=== PATIENT | male | born 1970 | race Caucasian/White ===

== ENCOUNTER → 2017-03-20 08:10 | Emergency (ER) | payer BC ==
[~2017-03-20 08:10] MED LIST: Ciproflox/Dexameth OTIC.SUSP* 7.5 ML BTL RIGHT EAR ONE; Ketorolac INJ* 60 MG/2 ML VIAL IM ONE
--- NOTE | 2017-03-20 10:05 | RAD ---
HISTORY: Right jaw pain COMPARISONS: None VIEWS: 4, frontal, axial, and bilateral oblique views of the mandible with the jaw closed FINDINGS: BONE DENSITY: Normal. BONES: There is no displaced fracture. JOINTS: There is no arthropathy. ALIGNMENT: There is no dislocation. There is no appreciable malocclusion SOFT TISSUES: Unremarkable. OTHER FINDINGS: None. IMPRESSION: UNREMARKABLE PLAIN FILMS OF THE MANDIBLE. IF THERE IS CLINICAL CONCERN FOR INTERNAL DERANGEMENT, MRI OF THE TEMPOROMANDIBULAR JOINTS MAY BE MORE SENSITIVE
[2017-03-20 10:51] VITALS: BP 142/91
--- NOTE | 2017-03-21 10:23 | ED ---
jasmyn Hernandez Timothy, scribed for Vimal Constantino MD on 03/20/17 at 0832 . Throat Pain/Nasal Congestion - HPI Summary HPI Summary: Juve Maier is a 47 yo male presenting to [facility] with 6/10 right sided jaw pain since 2100 03/19/17. He states his jaw is "out of place". He noticed some ear pain originally, but realized that the jaw was the true source of his pain. He states that he can feel his jaw bone pressing up on the inside of his ear, and that he used a Qtip try and push the jaw bone down from inside his ear. He states it feels like the right side of his jaw is pushed out of place. He states that when he had his tonsillectomy, his doctor had to dislocate his jaw. He has self-medicated with ibuprofen and mucinex with no relief. His MHx includes HTN, tobacco use, and tonsillectomy. - History of Current Complaint Time Seen by Provider: 03/20/17 09:11 Hx Obtained From: Patient Onset/Duration: Sudden Onset, Lasting Hours, Still Present Severity: Moderate - Allergies/Home Medications Allergies/Adverse Reactions: Allergies Allergy/AdvReac Type Severity Reaction Status Date / Time No Known Allergies Allergy Verified 09/05/14 10:10 PMH/Surg Hx/FS Hx/Imm Hx Cardiovascular History: Reports: Hx Hypertension - Surgical History Surgery Procedure, Year, and Place: tonsillectomy Infectious Disease History: Denies: Traveled Outside the [place] in Last 30 Days - Family History Known Family History: Positive: Cardiac Disease, Hypertension, Diabetes - Social History Alcohol Use: None Substance Use Type: Reports: None Hx Tobacco Use: Yes Smoking Status (MU): Former Smoker Review of Systems Constitutional: Negative Negative: Fever, Chills Eyes: Negative Negative: Erythema Positive: Other - jaw pain. Negative: Sore Throat Cardiovascular: Negative Negative: Chest Pain Respiratory: Negative Negative: Shortness Of Breath, Cough Gastrointestinal: Negative Negative: Abdominal Pain, Vomiting, Nausea Genitourinary: Negative Negative: dysuria, hematuria Musculoskeletal: Negative Negative: Myalgia, Edema - legs Skin: Negative Negative: Rash Neurological: Negative, Other - no dizziness Psychological: Normal All Other Systems Reviewed And Are Negative: Yes Physical Exam - Summary Physical Exam Summary: Constitutional: Well-developed, Well-nourished, Alert. (-) Distressed Skin: Warm, Dry HENT: Normocephalic; Atraumatic. Significant edema of the right external auditory canal with clear drainage. Pre-auricular tenderness with very mild trismus. Eyes: Conjunctiva normal Neck: Musculoskeletal ROM normal neck. (-) JVD, (-) Stridor, (-) Tracheal deviation Cardio: Rhythm regular, rate normal, Heart sounds normal; Intact distal pulses; The pedal pulses are 2+ and symmetric. Radial pulses are 2+ and symmetric. (-) Murmur Pulmonary/Chest wall: Effort normal. (-) Respiratory distress, (-) Wheezes, (-) Rales Abd: Soft, (-) Tenderness, (-) Distension, (-) Guarding, (-) Rebound Musculoskeletal: (-) Edema Lymph: (-) Cervical adenopathy Neuro: Alert, Oriented x3 Psych: Mood and affect Normal Triage Information Reviewed: Yes Vital Signs On Initial Exam: Initial Vitals Temp Pulse Resp BP Pulse Ox 97.2 F 78 18 159/96 99 03/20/17 08:19 03/20/17 08:19 03/20/17 08:19 03/20/17 08:19 03/20/17 08:19 Vital Signs Reviewed: Yes Diagnostics - Vital Signs Vital Signs Temp Pulse Resp BP Pulse Ox 03/20/17 08:19 97.2 F 78 18 159/96 99 - Laboratory Lab Statement: Any lab studies that have been ordered have been reviewed, and results considered in the medical decision making process. - Radiology Mandible XR Xray Interpretation: No Acute Changes - IMPRESSION: UNREMARKABLE PLAIN FILMS OF THE MANDIBLE. IF THERE IS CLINICAL CONCERN FOR INTERNAL DERANGEMENT, MRI OF THE TEMPOROMANDIBULAR JOINTS MAY BE MORE SENSITIVE Radiology Interpretation Completed By: Radiologist Re-Evaluation - Re-Evaluation First Eval Re-Evaluation Time: 10:27 Change: Unchanged Comment: Reviewed imaging studies with Pt, he is agreeable to be discharged. He was advised to switch from ibuprofen to the prescribed naproxen. EENT Course/Dx - Course Assessment/Plan: Juve Maier is a 47 yo male presenting to [facility] with 6/ 10 jaw pain since 2100 last night, claiming it is out of place. His medication list has been reviewed this visit. In the ED course he received toradol for pain management and ciprofloxacin/dexamethasone. His mandibular XR suggests unremarkable exam. Pt declined stronger pain medications than toradol. After clinical examination and review of his imaging study, he will be discharged home with right otitis externa with appropriate instructions. Pt understand that if he develops fever or worsening trismus he should return to [facility], and that he should switch from ibuprofen to the prescribed naproxen. - Differential Diagnoses Differential Diagnoses: Otitis Externa - Diagnoses Provider Diagnoses: Right otitis media Discharge - Discharge Plan Condition: Stable Disposition: HOME Patient Education Materials: Otitis Externa (ED), Ciprofloxacin/Dexamethasone ( Into the ear) Referrals: Neal Bone MD [Medical Doctor] - 2 Days Raleigh Briceno MD [Primary Care Provider] - 2 Days Additional Instructions: Please follow up with your primary care physician and the provided specialist regarding your visit to the emergency department today. Be sure to use 4 drops of the prescribed Cipro/Dex twice a day for 7 days. Return to the emergency department with any new or recurring symptoms, most importantly worsening trismus or fever. The documentation as recorded by the jasmyn lopez Timothy accurately reflects the service I personally performed and the decisions made by me, Vimal Constantino MD.
== END | disposition home or self-care (01) ==
LOC: ED 08:10
DX: H66.91 Otitis media, unspecified, right ear (principal); R68.84 Jaw pain; Z87.891 Personal history of nicotine dependence
CPT/HCPCS: 70110; 96372; 99281; A9270-GY; J1885

== ENCOUNTER 2021-10-15 21:10 | Inpatient (IN) ==
[2021-10-15 23:35] LABS: ABS Basophils 0.1 10^3/ul (0-0.2); ABS Eosinophils 0.8 10^3/ul (0-0.6); ABS Lymphocytes 1.7 10^3/ul (1.0-4.8); ABS Monocytes 0.9 10^3/ul (0-0.8); ABS Neutrophils 4.8 10^3/ul (1.5-7.7); Eosinophil % 9.7 %; Hematocrit 41 % (42-52); Hemoglobin 13.8 g/dL (14.0-18.0); Lymphocyte % 20.1 %; Mean Corpuscular HGB Conc 33 g/dL (31-36); Mean Corpuscular Hemoglobin 30 pg (27-31); Mean Corpuscular Volume 89 fL (80-94); Mean Platelet Volume 9.6 fL (7.4-10.4); Platelet Count 157 10^3/uL (150-450); Red Blood Count 4.63 10^6 /uL (4.18-5.48); Red Cell Distribution Width 15 % (10-15); White Blood Count 8.3 10^3/uL (3.5-10.8)
[2021-10-15 23:44] LABS: Activated Partial Thrombo Time 27.9 seconds (26.0-38.0)
[2021-10-15 23:56] LABS: Albumin 3.7 g/dL (3.2-5.2); Calcium 8.9 mg/dL (8.6-10.3); Globulin 3.2 g/dL (2-4); Potassium 3.8 mmol/L (3.5-5.0); Total Protein 6.9 g/dL (6.4-8.9); eGFR CKD-EPI 108.1 (>60)
[2021-10-15 23:57] LABS: Albumin/Globulin Ratio 1.2 (1-3); C Reactive Protein 30.58 mg/L (<8.01); Total Bilirubin 0.8 mg/dL (0.2-1.0)
[2021-10-16] MEDS ORDERED: Iohexol 350 (CONTRAST) 500 ML MDV IV ONE (00:51)
[2021-10-16] MEDS ORDERED: Enoxaparin 100 MG/ML SYR SUBCUT ONE (01:37)
[2021-10-17 05:55] LABS: ABS Basophils 0.1 10^3/ul (0-0.2); ABS Eosinophils 0.9 10^3/ul (0-0.6); ABS Lymphocytes 1.7 10^3/ul (1.0-4.8); ABS Monocytes 0.9 10^3/ul (0-0.8); ABS Neutrophils 4.3 10^3/ul (1.5-7.7); Eosinophil % 10.9 %; Hematocrit 40 % (42-52); Hemoglobin 13.4 g/dL (14.0-18.0); Lymphocyte % 21.2 %; Mean Corpuscular HGB Conc 34 g/dL (31-36); Mean Corpuscular Hemoglobin 30 pg (27-31); Mean Corpuscular Volume 89 fL (80-94); Mean Platelet Volume 9.5 fL (7.4-10.4); Platelet Count 164 10^3/uL (150-450); Red Blood Count 4.48 10^6 /uL (4.18-5.48); Red Cell Distribution Width 15 % (10-15); White Blood Count 7.9 10^3/uL (3.5-10.8)
[2021-10-18 11:55] VITALS: BP 120/82
[2021-10-18] MEDS ORDERED: COVID-19 VACCINE, AD26(JANSSEN)/PF 0.5 ML IM ONE (13:28)
[2021-10-18] MEDS ORDERED: Flu vaccine *QUAD* 2021-22* 0.5 ML SYRINGE IM ONE (14:00)
== END 2021-10-18 16:30 | disposition home or self-care (01) | DRG 175 ==
LOC: ED 21:10 → SUATTDRO 10-16 03:51 → EDHOLD 10-16 03:51 → MED 10-16 04:19
PROVIDERS: ADMIT Internal Medicine; ATTEND Internal Medicine